=== PATIENT | male | born 1960 | race Caucasian/White ===

== ENCOUNTER 2025-03-21 14:41 | Emergency (ER) | payer OTHER ==
[~2025-03-21] VITALS: Ht 180.3 cm; Wt 88.5 kg
[2025-03-21] MEDS ORDERED: MECLIZINE HCL 25 MG TABLET ONE (15:17)
[2025-03-21] MEDS: MECLIZINE HCL 25 MG TABLET PO ONE (15:31)
[2025-03-21] MEDS ORDERED: ONDANSETRON HCL/PF 4 MG/2 ML VIAL ONE (15:32)
[2025-03-21 15:33] LABS: RED CELL DISTRIBUTION WIDTH 13.4 % (11.5-15.0)
[2025-03-21 15:34] LABS: BASOPHILS # (AUTO) 0.1 K/uL (0.0-0.2)
[2025-03-21] MEDS: ONDANSETRON HCL/PF - ER 4 MG/2 ML VIAL IV ONE (15:36)
[2025-03-21 15:37] LABS: EOSINOPHILS # (AUTO) 0.1 K/uL (0.0-0.7); EOSINOPHILS % (AUTO) 2.4 % (0.0-6.0); HEMATOCRIT 42 % (39-51); HEMOGLOBIN 14.9 g/dL (13.5-17.5); LYMPHOCYTES # (AUTO) 2.6 K/uL (0.8-4.8); LYMPHOCYTES % (AUTO) 42.5 % (20.0-44.0); MEAN CORPUSCULAR HEMOGLOBIN 32 PG (26.0-33.0); MEAN CORPUSCULAR HGB CONC 36 g/dl (31.0-36.0); MEAN CORPUSCULAR VOLUME 89 fL (80-96); MONOCYTES # (AUTO) 0.5 K/uL (0.1-1.30); NEUTROPHILS # (AUTO) 2.7 K/uL (1.8-8.9); NEUTROPHILS % (AUTO) 45.1 % (43.0-81.0); PLATELET COUNT (AUTO) 380 K/uL (150-450); RED BLOOD CELL COUNT(AUTO) 4.71 MIL/uL (4.5-6.0); WHITE BLOOD COUNT (AUTO) 6.1 K/uL (4.3-11.0)
[2025-03-21 15:42] LABS: CALCIUM, SERUM 9.8 mg/dL (8.5-10.1); CARBON DIOXIDE 20 mmol/L (21-32); CHLORIDE 103 mmol/L (98-107); CREATININE 1.1 mg/dL (0.6-1.3); GLUCOSE 118 mg/dL (74-106); POTASSIUM 3.2 mmol/L (3.5-5.1); SODIUM SERUM 138 mmol/L (136-145); UREA NITROGEN, BLOOD 19 mg/dL (7-18)
[2025-03-21 15:54] LABS: ALANINE AMINOTRANSFERASE 27 U/L (12-78); ALKALINE PHOSPHATASE 88 U/L (46-116); ASPARTATE AMINOTRANSFERASE 24 U/L (15-37); BILIRUBIN,TOTAL 0.7 mg/dL (0.2-1.0); NT-PRO BNP 15 pg/mL (0-125)
[2025-03-21 15:55] LABS: BILIRUBIN,DIRECT 0.1 mg/dL (0.0-0.2)
[2025-03-21 16:05] LABS: ALBUMIN 4.4 g/dL (3.4-5.0)
[2025-03-21] MEDS ORDERED: KETOROLAC TROMETHAMINE INJ 30 MG/ML VIAL ONE (16:34)
[2025-03-21 17:08] VITALS: BP 140/87; TEMP 98.4; O2SAT 99
== END 2025-03-21 17:09 | disposition home or self-care (01) ==
LOC: ER 14:56
DX: R42 Dizziness and giddiness (principal); R11.0 Nausea
CPT/HCPCS: 99285; 70450; 71045; 93005; 85025; 80048; 80076; 36415; 84484; 83880; 82962; J1885; J8597; J2405 ×2; J7030; J7040; A4223